=== PATIENT | male | born 1990 | race Caucasian/White ===

== ENCOUNTER 2024-03-15 18:53 | Emergency (ER) | payer OTHER ==
[~2024-03-15] VITALS: Ht 172.7 cm; Wt 84.1 kg
[2024-03-15 19:41] VITALS: BP 131/65; PULSE 89; RESP 20; TEMP 98.3
== END 2024-03-15 21:56 | disposition home or self-care (01) ==
LOC: EMS 18:58
DX: F15.10 Other stimulant abuse, uncomplicated (principal); F17.210 Nicotine dependence, cigarettes, uncomplicated
CPT/HCPCS: 99282; Z7502

== ENCOUNTER 2024-07-18 02:58 | Emergency (ER) | payer OTHER ==
[~2024-07-18] VITALS: Ht 172.7 cm; Wt 81.8 kg
[2024-07-18 04:16] VITALS: BP 127/71; PULSE 101; RESP 15; TEMP 98.3; O2SAT 98
== END 2024-07-18 04:21 | disposition home or self-care (01) ==
LOC: EMS 02:58
DX: T16.1XXA Foreign body in right ear, initial encounter (principal); T16.2XXA Foreign body in left ear, initial encounter; F17.210 Nicotine dependence, cigarettes, uncomplicated; F15.90 Other stimulant use, unspecified, uncomplicated; W44.8XXA Other foreign body entering into or through a natural orifice, initial encounter; Y93.89 Activity, other specified; Y92.89 Other specified places as the place of occurrence of the external cause; Y99.8 Other external cause status
CPT/HCPCS: 69200; 99284; Z7502